=== PATIENT | female | born 1945 | race Caucasian/White ===

== ENCOUNTER 2017-09-30 06:35 | Day surgery (SDC) | payer OTHER | END 2017-09-30 09:20 | disposition home or self-care (01) | LOC: AMB-ENDOS 06:35 | DX: D12.2 Benign neoplasm of ascending colon (principal); K64.4 Residual hemorrhoidal skin tags; K64.8 Other hemorrhoids; K57.30 Diverticulosis of large intestine without perforation or abscess without bleeding ==